=== PATIENT | male | born 1990 | race Caucasian/White ===

== ENCOUNTER 2017-09-28 21:09 | Emergency (ER) | payer BC, OTHER ==
[~2017-09-28] VITALS: Ht 188 cm; Wt 111.0 kg
[~2017-09-28 21:09] MED LIST: FLUO20CA35 PO; IBUP600T44 PO
[2017-09-28 21:12] VITALS: TEMP 37; Ht 188 cm; Wt 111.0 kg
[2017-09-28] MEDS: LIDOCAINE/EPINEPHRINE 1% 20 ML VIAL INFIL ONE (21:45)
[2017-09-28] MEDS: DIPHTHERIA/TETANUS/PERTUSSIS 0.5 ML SYR/VIAL IM. ONE (22:13)
--- NOTE | 2017-09-28 23:03 | EMERGENCY ROOM VISIT NOTE ---
ED Visit Note First contact with patient: 21:22 CHIEF COMPLAINT: Left knee laceration HISTORY OF PRESENT ILLNESS: This 27-year-old male patient presents to the emergency department ambulatory after cutting the left knee. The patient states that he fell off of a chair approximately 30 minutes ago and landed onto his dog's grooming brush. The bleeding has stopped. Denies weakness or numbness of the left leg. The patient denies any pain at this time. He denies any further injuries. He is unsure when his last tetanus was. REVIEW OF SYSTEMS: A 6 system review of systems was completed with positives and pertinent negatives listed in the HPI. ALLERGIES: No known drug allergies MEDICATIONS: No chronic medications. PMH: No significant past medical history. SOCIAL HISTORY: The patient lives locally with family. PHYSICAL EXAM: Vital Signs: Reviewed Nurse's notes, vital signs stable. GENERAL : This is a 27-year-old male, in no acute distress, well-developed, well- nourished. SKIN: There is a 5 cm long curved laceration on the anterior aspect of the left lower leg, just distal to the knee. The edges gape apart with traction. There is no foreign material in the wound and it looks clean. There is no active bleeding. No deep structures such as tendons, bones, or significant blood vessels are seen in the base of the wound. Normal strength and movement of the left knee. Capillary refill less than 2 seconds. Normal sensation to light and sharp touch. EMERGENCY DEPARTMENT COURSE: I examined the patient. Verbal consent was obtained to perform the procedure. Using sterile technique the wound was cleansed with Betadine. The area was sterilely draped. 5 ml of 1% buffered lidocaine with epinephrine was used to anesthetize the laceration on the knee. Once the patient was anesthetized, the wound was copiously irrigated under pressure with sterile saline. The wound was explored and was as described above. The laceration was repaired using 8 simple interrupted 4-0 nylon sutures with the wound edges being well approximated. The patient tolerated the procedure well. Hemostasis was achieved. The area was cleaned with sterile saline and dressed with bacitracin ointment and bandage. The patient was given Tdap immunization. The patient was placed in a knee immobilizer. The patient was discharged home in good condition. Blood Pressure Screening: Patient was found to have a slightly elevated blood pressure due to circumstances. I do not believe that the patient requires hypertension monitoring. Medication reconciliation: I attest that I have personally reviewed the patient 's current medication list. DIAGNOSIS: Left leg laceration Current/Historical Medications Scheduled Digestive Enzymes (Papaya Enzyme), 1 TAB PO DAILY Allergies Coded Allergies: No Known Allergies (Verified Allergy, Unknown, 01/01/06) Vital Signs Date Time Temp Pulse Resp B/P (MAP) Pulse Ox O2 Delivery O2 Flow Rate FiO2 09/28/17 23:17 84 18 156/84 90 Room Air 09/28/17 21:12 37.0 99 18 136/91 97 Room Air Medications Administered Medications (Trade) Dose Ordered Sig/Ti Route Start Time Stop Time Status Last Admin Dose Admin Diphtheria/ Pertussis/Tetanus Vacc (Adacel Inj) 0.5 ml ONCE ONCE IM. 09/28/17 21:45 09/28/17 21:46 DC 09/28/17 22:13 0.5 ML Departure Information Impression Primary Impression: Laceration of lower extremity Dispostion Home / Self-Care Condition GOOD Referrals No Doctor, Assigned (PCP) Patient Instructions My [facility] Additional Instructions You have received 8 sutures on your knee. These sutures are NOT dissolvable and WILL need to be removed by a health care provider in 12-14 days. You can return to the Emergency Department or contact your Primary Care Provider to have the sutures removed. Proper wound care is essential for adequate wound healing and infection prevention. You can shower and clean the wound with soap and water. Do not scour over the wound, pat dry with a towel. Do not submerse the wound (i.e. bathe or dish wash) until the sutures have been removed. You can use an antibiotic ointment with a dressing over the wound for the next 3-4 days. After this time you may leave the wound dry and open to the air. If crust develops over the wound you can use a Q-tip to apply a 1:1 peroxide:water solution to clean the wound. Look for signs of infection of the wound including: increased pain, swelling, foul discharge, streaking, or increased temperature. If any of these are noticed you should return to the Emergency Department for further assessment and treatment. As with any laceration you may have received nerve damage to the surrounding tissues. This damage may or may not be permanent. You should keep the area covered with sunscreen for the first 6 months to 1 year when at risk for exposure to help minimize scarring. You can also use scar reducing creams or Vitamin E oil to help minimize scarring. For pain control, you can use the following [id number] medicines (if >12 yo): - Regular strength (325mg/tab) Tylenol (acetaminophen) 2 tabs every 4-6 hours as needed. Do not exceed 12 tablets in a 24 hour period. Avoid taking more than 4 grams (4000 mg) of Tylenol per day. This includes any other sources of acetaminophen you may take on a regular basis. - Regular strength (200 mg/tab) Advil (ibuprofen) 1-2 tabs every 4-6 hours as needed. Do not exceed a dose of 3200 mg per day. Return to the emergency department if your symptoms worsen despite treatment course outlined above. Problem Qualifiers Primary Impression: Laceration of lower extremity Encounter type: initial encounter Laterality: left Qualified Codes: S81.812A - Laceration without foreign body, left lower leg, initial encounter
[2017-09-28] MEDS ORDERED: DIGETAB13 PO (23:04)
[2017-09-28 23:17] VITALS: BP 156/84; PULSE 84; O2SAT 90
== END 2017-09-28 23:23 | disposition home or self-care (01) ==
LOC: C.EDB 21:10 → C.EDD 23:23
DX: S81.812A Laceration without foreign body, left lower leg, initial encounter (principal); W19.XXXA Unspecified fall, initial encounter; Z23 Encounter for immunization